=== PATIENT | female | born 1980 | race Caucasian/White ===

== ENCOUNTER 2022-12-16 09:55 | Inpatient (IN) ==
[2022-12-16] MEDS ORDERED: dexAMETHasone**PF** 10 MG/ML VIAL IV ONE (10:10)
[2022-12-16] MEDS ORDERED: ONDANSETRON INJ 2 MG/ML 2 ML VIAL IV STA (10:10)
--- NOTE | 2022-12-16 10:15 | Emergency Department Note ---
Impression & Plan Lumbar disc herniation with radiculopathy ED Provider Note NAME: FELISHA JOLLEY AGE: 42 SEX: F : 1980 ARRIVES VIA: Walk-In INFORMANT: Patient, ED PROVIDER(S): Lalo Vargas DO CHIEF COMPLAINT: Back pain HPI: The patient is a 42-year-old female who presented to the emergency department for an evaluation of back pain. The patient's had progressively worsening back pain over the course of the last 3 months. The patient denies roman ving any specific injury but she was working last evening and thinks she may have aggravated the pain. She has had right hip pain initially. This was felt to be the cause of her pain and initially she did have an injection for bursitis. Since that time the pain started to go down the lateral aspect of her right thigh and into her right lower back. Most recently she was diagnosed with suspected lumbar disc disease. She does have follow-up scheduled with orthopedic spine. She started having severe pain this morning and was unable to stand. She called her orthopedic spinal specialist and was instructed to go to the emergency department for further evaluation. She denies having any nausea or vomiting. She is had no fever or trauma. She does complain of some numbness in the leg but denies having any saddle anesthesia. She has noticed some problems urinating. ROS: See above HPI for pertinent positives & negatives. A total of 10 systems reviewed and were otherwise negative. PAST MEDICAL HISTORY: See Below PAST SURGICAL HISTORY: See Below FAMILY HISTORY: See Below SOCIAL HISTORY: See Below HOME MEDICATIONS: See Below ALLERGIES: See Below VITALS: See Below PHYSICAL EXAMINATION: GENERAL: The patient is awake and alert. She is very anxious appearing and appears to be uncomfortable. EYES: The conjunctivae are clear. The pupils are round and reactive. EARS, NOSE, MOUTH AND THROAT: The nose is without any evidence of any deformity. NECK: The neck is nontender and supple. RESPIRATORY: Normal respiratory effort is noted there is no evidence of wheezing rhonchi or rales CARDIOVASCULAR: Regular rate and rhythm noted there no murmurs rubs or gallops normal S1 normal S2. GASTROINTESTINAL: The abdomen is soft. Abdomen is nontender. BACK: Tenderness to palpation was noted over the low lumbar spine especially the right paravertebral musculature. Range of motion appears intact but painful. MUSCULOSKELETAL/EXTREMITIES: There is no evidence of gross deformity full range of motion is noted in the hips and shoulders. SKIN: There is no obvious evidence of any rash. There are no petechiae, pallor or cyanosis noted. NEUROLOGIC: Patient is awake alert and oriented x3 strength is symmetric patellar reflexes are 2+ bilaterally. Achilles tendon reflexes were 1+ bilaterally. Great toe raise was normal in the left foot but diminished in the right foot. MEDICAL DECISION MAKING: The patient is a 42-year-old female who presented to the emergency department for an evaluation of back pain. The patient's had ongoing symptoms many weeks. Initially this was felt to be a hip issue but recently she started having back pain with radicular symptoms into her right leg. History and physical exam appear to be consistent with radiculopathy and possible disc disease. For this reason MRI was obtained which does appear to show signs of disc herniation. I discussed the patient's condition with Dr. Bautista who is on for orthopedic spine. The patient was treated with IV fluids IV pain medication and IV st eroids. She was reevaluated multiple times. She was feeling somewhat better but at 1 point did try to stand and go to the bathroom again with reaggravation of her symptoms. I do not feel the patient be a good candidate for outpatient management at this time. Triage Nursing notes reviewed. Prior medical records reviewed Vital Signs: reviewed and remarkable for elevated blood pressure. Differential diagnosis: Musculoskeletal, disc herniation, fracture, metastatic disease, cord compression, discitis, sciatica, cauda equina, infection, aortic disease, renal colic, gastrointestinal, as well as other pathologies. ER treatment provided: See below Diagnostics interpreted by me: ECG: none Cardiac Monitoring: An order was placed for continuous cardiac monitoring. The monitor shows a rate of 105 bpm with sinus tachycardia. Laboratory studies: As stated above and show below. Imaging studies: See below. Radiographic imaging was reviewed by myself Consultation(s): I discussed this case with Dr. Bautista. I discussed this case with Dr. Hayes who is on for the [facility] hospitalist group Past Med/Surg History Surgical History H/O dilation and curettage MAB at 8 weeks-04/30/2014 MAB at 16+weeks-05/04/15 History of cholecystectomy [place] teeth extracted Family History Grandmother (Paternal) Breast cancer Denies family history of Ovarian cancer Colorectal cancer Social History Smoking Status: Never smoker Preferred Language: Kyrgyz Feels Safe at Home: Yes Allergies Allergies Allergy/AdvReac Type Severity Reaction Status Date / Time doxycycline Allergy Unknown RASH Verified 01/23/22 13:49 Home Meds Home Medications Medication Instructions Recorded Confirmed metoprolol succinate 25 mg 25 mg PO DAILY 01/23/22 01/23/22 tablet,extended release 24 hr Previous Rx's Medication Instructions Recorded norethindrone acetate 1 mg-ethinyl 1 tab PO DAILY #63 tabs 01/23/22 estradiol 20 mcg tablet (Junel) Results & Data (ED) Vital Signs Vital Signs - 24 hr 12/16/22 09:55 12/16/22 10:10 12/16/22 11:53 Temperature 36.8 C Temperature Source Temporal Artery Scan Pulse Rate 105 H 86 Pulse Rhythm Regular Respiratory Rate 22 Respiratory Effort / Characteristics Non-Labored Respiratory Depth Normal Blood Pressure 165/88 H Blood Pressure Mean 113 Pulse Oximetry 96 94 Oxygen Delivery Method Room Air Room Air Sepsis Recent Fever Within 48 Hours No Sepsis New/Unexplained Change in Mental Status N/A Sepsis Action Taken by Nursing No Action Required Home Medications Current Medication List: was personally reviewed by me Laboratory Data Attestation: I reviewed the patient's lab results. 12/16/22 10:14 12/16/22 10:14 Lab Results 12/16/22 12/16/22 12/16/22 Range/Units 10:14 10:14 10:14 WBC 7.91 (4.8-10.8) K/ul RBC 4.75 (4.20-5.40) M/uL Hgb 14.1 (12.0-16.0) g/dl Hct 41.6 (37.0-47.0) % MCV 87.6 (80.0-100.0) fL MCH 29.7 (25.0-34.0) pg MCHC 33.9 (32.0-36.0) g/dL RDW Std Deviation 40.5 (36.4-46.3) fL RDW Coeff of Leo 12.6 (11.5-14.5) % Plt Count 283 (130-400) K/uL MPV 10.6 (9.4-12.4) fL Immature Gran % (Auto) 0.4 % Neut % (Auto) 71.9 % Lymph % (Auto) 20.4 % [place] % (Auto) 7.2 % Eos % (Auto) 0.0 % Baso % (Auto) 0.1 % Neut # (Auto) 5.69 (1.40-6.50) K/uL Lymph # (Auto) 1.61 (1.2-3.4) K/uL [place] # (Auto) 0.57 (0.11-0.59) K/uL Eos # (Auto) 0.00 (0-0.50) K/uL Baso # (Auto) 0.01 (0-0.2) K/uL Immature Gran # (Auto) 0.03 (0.01-0.20) K/uL Sodium 138 (136-145) mmol/L Potassium 3.8 (3.5-5.1) mmol/L Chloride 106 (98-107) mmol/L Carbon Dioxide 23 (21-32) mmol/L Anion Gap 9 (3-11) BUN 12 (6-23) mg/dl Creatinine 0.87 (0.6-1.2) mg/dl Est Cr Clr Drug Dosing 104.2 ml/min Est GFR ( Amer) 94.6 ml/min Est GFR (Non-Af Amer) 81.6 ml/min BUN/Creatinine Ratio 13.8 (10-20) Glucose 139 H (70-99(Fasting)) mg/dl Calcium 9.7 (8.5-10.1) mg/dl Total Bilirubin 0.5 (0.2-1.0) mg/dl AST 18 (13-39) U/L ALT 19 (7-52) U/L Alkaline Phosphatase 57 (34-104) U/L Total Protein 7.7 (6.0-8.3) gm/dl Albumin 4.3 (3.4-5.0) gm/dl Globulin 3.4 (2.5-4.0) gm/dl Albumin/Globulin Ratio 1.3 (0.9-2) HCG, Qual Negative (Negative) SARS-CoV-2, RNA, NAAT (NEGATIVE) 12/16/22 Range/Units 12:05 WBC (4.8-10.8) K/ul RBC (4.20-5.40) M/uL Hgb (12.0-16.0) g/dl Hct (37.0-47.0) % MCV (80.0-100.0) fL MCH (25.0-34.0) pg MCHC (32.0-36.0) g/dL RDW Std Deviation (36.4-46.3) fL RDW Coeff of Leo (11.5-14.5) % Plt Count (130-400) K/uL MPV (9.4-12.4) fL Immature Gran % (Auto) % Neut % (Auto) % Lymph % (Auto) % [place] % (Auto) % Eos % (Auto) % Baso % (Auto) % Neut # (Auto) (1.40-6.50) K/uL Lymph # (Auto) (1.2-3.4) K/uL [place] # (Auto) (0.11-0.59) K/uL Eos # (Auto) (0-0.50) K/uL Baso # (Auto) (0-0.2) K/uL Immature Gran # (Auto) (0.01-0.20) K/uL Sodium (136-145) mmol/L Potassium (3.5-5.1) mmol/L Chloride (98-107) mmol/L Carbon Dioxide (21-32) mmol/L Anion Gap (3-11) BUN (6-23) mg/dl Creatinine (0.6-1.2) mg/dl Est Cr Clr Drug Dosing ml/min Est GFR ( Amer) ml/min Est GFR (Non-Af Amer) ml/min BUN/Creatinine Ratio (10-20) Glucose (70-99(Fasting)) mg/dl Calcium (8.5-10.1) mg/dl Total Bilirubin (0.2-1.0) mg/dl AST (13-39) U/L ALT (7-52) U/L Alkaline Phosphatase (34-104) U/L Total Protein (6.0-8.3) gm/dl Albumin (3.4-5.0) gm/dl Globulin (2.5-4.0) gm/dl Albumin/Globulin Ratio (0.9-2) HCG, Qual (Negative) SARS-CoV-2, RNA, NAAT NEGATIVE (NEGATIVE) Administered Medications Sodium Chloride (Nss 1000ml) 1,000 mls @ 999 mls/hr IV .Q1H1M ONE Stop: 12/16/22 12:54 Last Admin: 12/16/22 12:00 Dose: 999 mls/hr Documented By: VAMSI Morphine Sulfate (Morphine Sulfate 4 Mg/Ml 1 Ml Carp\Vial) 4 mg IV Q15M PRN PRN Reason: Pain Stop: 12/30/22 10:09 Last Admin: 12/16/22 12:00 Dose: 4 mg Documented By: Admin: 12/16/22 11:40 Dose: 4 mg Documented By: Admin: 12/16/22 10:21 Dose: 4 mg Documented By: VAMSI Discontinued Medications Dexamethasone Sodium Phosphate (DexamethasonePf 10 Mg/Ml Vial) 10 mg IV NOW ONE Stop: 12/16/22 10:11 Last Admin: 12/16/22 10:21 Dose: 10 mg Documented By: VAMSI Ondansetron HCl (Ondansetron Inj 2 Mg/Ml 2 Ml Vial) 4 mg IV NOW STA Stop: 12/16/22 10:11 Last Admin: 12/16/22 10:21 Dose: 4 mg Documented By: VAMSI Imaging Data Attestation: I personally reviewed and interpreted this imaging study as follows: My Impression: MRI was obtained in the emergency department. I did review the images. There does appear to be disc herniation. Radiologist's Impression: Lumbar Spine MRI 12/16/22 10:11 MR lumbar spine wo con CLINICAL HISTORY: right sided symptoms TECHNIQUE: Multiplanar sequences through the lumbar spine were obtained, without intravenous contrast. Comparison: None available at the time of this dictation. FINDINGS: The alignment is anatomical. L1-L2: No significant abnormality. L2-L3: No significant abnormality. L3-L4: No significant abnormality. L4-L5: There is a focal right-sided disc extrusion which impinges upon the exiting L5 nerve roots. Extrusion measures approximately 10 x 5 mm. There is moderate canal stenosis with AP diameter measuring 5 mm. L5-S1: No significant abnormality. The spinal ligaments are intact, without evidence of disruption or abnormal signal intensity. The spinal cord is normal in signal intensity and there is no evidence of cord contusion. There is no evidence of an extradural, intradural, extramedullary or intramedullary lesion. Visualized soft tissues are normal. IMPRESSION: Focal right-sided disc extrusion at L4-L5 impinges upon the exiting L5 nerve roots on the right. ACT 112: Negative or not required by law. Electronically signed by: Spencer Matos M.D. 12/16/2022 11:43 AM Discharge Plan Visit Data Chief Complaint: Back Injury/Pain Stated Complaint: POTENTIAL HERNIATED DISC ED Provider: Lalo Vargas Discharge Problem: Lumbar disc herniation with radiculopathy Patient Disposition: Being Evaluated by Surgeon Forms Stand Alone Forms: My [facility] [place] Prescriptions Prescriptions: No Action metoprolol succinate 25 mg tablet extended release 24 hr 25 mg PO DAILY norethindrone ac-eth estradiol [11/03 (21)] 1-20 mg-mcg tablet 1 tab PO DAILY Qty: 63 4RF Rx Instructions: take one tablet by mouth daily for 21 days, then 7 tablet free days. Repeat. Referrals Referrals: PCP,NO [Primary Care Provider] -
[2022-12-16] MEDS: MoRPHine SULFATE 4 MG/ML 1 ML CARP\\VIAL IV PRN ×4 (10:21→21:33)
[2022-12-16 10:44] LABS: Basophils # (auto) 0.01 K/uL (0-0.2); Basophils % (auto) 0.1 %; Hematocrit (blood only) 41.6 % (37.0-47.0); Hemoglobin 14.1 g/dl (12.0-16.0); Immature Granulocytes # (auto) 0.03 K/uL (0.01-0.20); Immature Granulocytes % (auto) 0.4 %; Lymphocytes # (auto) 1.61 K/uL (1.2-3.4); Lymphocytes % (auto) 20.4 %; Mean Corpuscular Hemoglobin 29.7 pg (25.0-34.0); Mean Corpuscular Hgb Conc 33.9 g/dL (32.0-36.0); Mean Corpuscular Volume 87.6 fL (80.0-100.0); Mean Platelet Volume 10.6 fL (9.4-12.4); Monocytes # (auto) 0.57 K/uL (0.11-0.59); Monocytes % (auto) 7.2 %; Neutrophils # (auto) 5.69 K/uL (1.40-6.50); Neutrophils % (auto) 71.9 %; Platelet Count 283 K/uL (130-400); RDW Coefficient of Variation 12.6 % (11.5-14.5); RDW Standard Deviation 40.5 fL (36.4-46.3); Red Blood Count 4.75 M/uL (4.20-5.40); White Blood Count 7.91 K/ul (4.8-10.8)
[2022-12-16 10:56] LABS: Albumin Globulin Ratio 1.3 (0.9-2); Albumin Level 4.3 gm/dl (3.4-5.0); BUN Creatinine Ratio 13.8 (10-20); Bilirubin,Total 0.5 mg/dl (0.2-1.0); Calcium 9.7 mg/dl (8.5-10.1); Creatinine Clr Calc Pharmacy 104.2 ml/min; Est GFR (African American) 94.6 ml/min; Est GFR (Non-African American) 81.6 ml/min; Globulin 3.4 gm/dl (2.5-4.0); Potassium 3.8 mmol/L (3.5-5.1); Total Protein 7.7 gm/dl (6.0-8.3)
[2022-12-16 11:22] LABS: Pregnancy Test, Serum Negative (Negative)
--- NOTE | 2022-12-16 11:45 | Magnetic Resonance Report ---
MR lumbar spine wo con CLINICAL HISTORY: right sided symptoms TECHNIQUE: Multiplanar sequences through the lumbar spine were obtained, without intravenous contrast . Comparison: None available at the time of this dictation. FINDINGS: The alignment is anatomical. L1-L2: No significant abnormality. L2-L3: No significant abnormality. L3-L4: No significant abnormality. L4-L5: There is a focal right-sided disc extrusion which impinges upon the exiting L5 nerve roots. Ex trusion measures approximately 10 x 5 mm. There is moderate canal stenosis with AP diameter measuring 5 mm. L5-S1: No significant abnormality. The spinal ligaments are intact, without evidence of disruption or abnormal signal intensity. The spi nal cord is normal in signal intensity and there is no evidence of cord contusion. There is no eviden ce of an extradural, intradural, extramedullary or intramedullary lesion. Visualized soft tissues are normal. IMPRESSION: Focal right-sided disc extrusion at L4-L5 impinges upon the exiting L5 nerve roots on the right. ACT 112: Negative or not required by law. Electronically signed by: Spencer Matos M.D. 12/16/2022 11:43 AM
[2022-12-16] MEDS ORDERED: SODIUM CHLORIDE 0.9% 1000ML 1,000 ML IV ONE (11:54)
--- NOTE | 2022-12-16 12:38 | History & Physical Report ---
Date of Service December 16, 2022 Assessment & Plan (1) Lumbar disc herniation with radiculopathy: Plan: Back pain, radiculopathy, right foot drop MRI: Focal right-sided disc extrusion at L4-L5 impinges upon the exiting L5 nerve roots on the right. On exam patient with focal right weakness to dorsiflexion with preserved plantarflexion. Also has peroneal distribution paresthesia. Ortho updated Continue multimodal pain control, Tylenol, lidocaine, morphine breakthrough, steroids Dexamethasone 6 mg daily continue No leukocytosis Hemoglobin is normal Creatinine is with normal baseline, admitting creatinine 0.87 Admitting BSG nonfasting, 139. No history of DM Beta-hCG negative COVID-negative Normal risk surgery. No history of ischemic heart disease. No history of congestive failure. No history of TIA/stroke. No history of DM/insulin treatment. No history of CKD or elevated creatinine. RCRI 0 points, class I risk. 3.9% 30-day risk of mortality. No modifiable risk factors at this time. Rhythm sinus on monitor, preop EKG for baseline pending. R hip pain in September. - 1x injection no benefit - Progressively spread to back May have underlying symptoms of sciatica at baseline, but current symptoms are different and radicular in nature, management as above PVCs Without history of NJ or dysrhythmia Metoprolol continued EKG pending DVT prophylaxis: Lovenox, hold 24 hours prior to anticipated surgery Diet: Regular, n.p.o. midnight of 12/18/2022 Disposition: Medical surgical CODE STATUS: Full code (2) PVC (premature ventricular contraction): History of Present Illness Primary Care Provider: NO PCP Diana is a 42-year-old female with a past medical history of cholecystectomy and migraine who presented to the emergency department with several weeks of ongoing back pain which is recently started spreading down the right leg. MRI shows disc herniation, case was reviewed with orthopedic spine will likely require surgical decompression however this cannot be performed until Sunday. Patient will be admitted on medical management and made n.p.o. Sunday night. Started as hi pain in September which did feel different than current symptoms. Did have some pain which radiated down the R leg with tightness Last few weeks changed in quality and shot down into the lower leg and was associated with low back pain as well Would improve during the day and worsen at night Last week worsened during the day and progressivly increased Today could not stand back up int he bathroom due to pain. Pain this morning was in R low back shooting in to the R foot and toes. Toes, ankle, and mid calf were numb and could not put any weight on the leg while also having a cramping like pain. Since being in the ER feels a little better. Back pain laying down is improved, but shooting pain into the leg is 'still there but tolerable.' 2/10 in intensity now, was ~6-7/10 earlier. As soon as she tried to get out of bed earlier to give a urine sample has 10/10 shooting pain again which has improved with rest. No urinary retention or incontinence. No bowel/bladder incontinence. No saddle anesthesia No fevers, chills, or sweats No chest pain or chest pressure No shortness of breath Takes metoprolol for PVCs, did take this morning. No other heart disease. No history of NJ, no FHx of NJ. NO history of kidney disease No history of lung disease No history of blood clots. No FHx PEs. Norethindrone-ethinyl for period suppression. Still gets periods but volume of blood loss greatly improved. No over the counter medication tx. Medical History: Reviewed Medications: Reviewed Surgical History: Reviewed. Hx of cholecystectomy and 2x D&E for miscarriage, no problems with anesthesia. Allergies: Reviewed. Allergic to doxycycline, had a rash when she was in college and was tx. Social History: No tobacco use, rare social alcohol use. No recreational drug use or medical marijuana use Code Status: Full Allergies Allergy/AdvReac Type Severity Reaction Status Date / Time doxycycline Allergy Unknown RASH Verified 01/23/22 13:49 Home Medications Medication Instructions Recorded Confirmed Type metoprolol succinate 25 mg 25 mg PO DAILY 01/23/22 01/23/22 History tablet,extended release 24 hr norethindrone acetate 1 mg-ethinyl 1 tab PO DAILY #63 tabs 01/23/22 01/23/22 Rx estradiol 20 mcg tablet (June) Past Med/Surg History Medical History (Updated 12/16/22 @ 12:49 by Henok Dumont MD) PVC (premature ventricular contraction) Surgical History H/O dilation and curettage MAB at 8 weeks-04/30/2014 MAB at 16+weeks-05/04/15 History of cholecystectomy [place] teeth extracted Family History Grandmother (Paternal) Breast cancer Denies family history of Ovarian cancer Colorectal cancer Social History Smoking Status: Never smoker Preferred Language: Bengali Feels Safe at Home: Yes Review of Systems Review of Systems: All systems reviewed & are unremarkable except as noted in HPI & below Physical Exam Physical Exam: General: A&Ox3. NAD. Cooperative. HEENT: Atraumatic, normocephalic. Vision/hearing intact Pulm: CTAB A&P. -wheezes, -rales, -rhonchi. Symmetrical chest rise. No increase in work of breathing. No respiratory distress. Cardiac: RRR, -mrg. Radial pulses intact and symmetrical. Abdominal: Nontender, nondistended, soft. BS present. Extremities: Upper extremities: Right and left upper extremities with recycler strength, elbow flexion/extension, shoulder flexion/extension 5/5 bilaterally. Sensation of soft touch intact in hands, forearms bilaterally without asymmetry. Right lower extremity: Sensation to soft touch intact but with numbness/tingling/paresthesia qualitatively most prominent on the dorsal aspect of the foot and lateral lower leg. Plantarflexion 5/5, dorsiflexion 4 -/5 and notably weaker compared to left. Hip flexion unable to be tested due to pain limitation. Left lower extremity: 5/5 hip flexion, ankle dorsiflexion/plantarflexion. Sensation of soft touch intact without paresthesia in the left lower extremity. PT pulse intact bilaterally in the lower extremities. No pitting edema. No calf asymmetry Results & Data Results & Data ([facility]) Vital Signs (Past 12 Hours) Vital Signs Temp Pulse Resp BP Pulse Ox O2 Del Method 12/16/22 11:53 86 12/16/22 10:10 94 Room Air 12/16/22 09:55 36.8 C 105 H 22 165/88 H 96 Room Air PG Care Time/CCT Total # of Minutes Spent Total Time Spent with Patient: Total time spent is greater than 50% in coordination of care (as documented) at patient's floor/unit and/or counseling patient: Coding Level of Care Code 11273 INT INP/OBS CARE MIN Diagnoses Lumbar disc herniation with radiculopathy M51.16 PVC (premature ventricular contraction) I49.3
[2022-12-16] MEDS ORDERED: MoRPHine SULFATE 2 MG/ML CARP IV PRN (14:39)
[2022-12-16] MEDS ORDERED: ACETAMINOPHEN 325 MG TAB PO PRN (14:39)
[2022-12-16 19:59] LABS: Appearance Urine Clear (Clear); Bacteria Urine Automated Negative (Negative); Bilirubin Urine Negative (Negative); Blood Urine Trace (Negative); Cast Urine Automated 0 /lpf (0-5); Color Urine Yellow; Epithelial Cell Urine Auto 20-30 /lpf (0-5); Glucose Urine UA Negative (Negative); Ketones Urine Negative (Negative); Leukocyte Esterase Urine Negative (Negative); Nitrite Urine Negative (Negative); Protein Urine Negative (Negative); RBC Urine Automated 0-4 /hpf (0-4); Specific Gravity Urine 1.012 (1.000-1.030); Urobilinogen Urine Negative (Negative); pH Urine 6.5 (4.5-7.5)
[2022-12-17] MEDS: MoRPHine SULFATE 4 MG/ML 1 ML CARP\\VIAL IV PRN (05:14)
[2022-12-17 06:24] LABS: Basophils # (auto) 0.01 K/uL (0-0.2); Basophils % (auto) 0.1 %; Hematocrit (blood only) 38.4 % (37.0-47.0); Hemoglobin 12.7 g/dl (12.0-16.0); Immature Granulocytes # (auto) 0.05 K/uL (0.01-0.20); Immature Granulocytes % (auto) 0.6 %; Lymphocytes # (auto) 2.15 K/uL (1.2-3.4); Lymphocytes % (auto) 24.3 %; Mean Corpuscular Hemoglobin 29.5 pg (25.0-34.0); Mean Corpuscular Hgb Conc 33.1 g/dL (32.0-36.0); Mean Corpuscular Volume 89.3 fL (80.0-100.0); Mean Platelet Volume 10.9 fL (9.4-12.4); Monocytes # (auto) 0.79 K/uL (0.11-0.59); Monocytes % (auto) 8.9 %; Neutrophils # (auto) 5.84 K/uL (1.40-6.50); Neutrophils % (auto) 66.1 %; Platelet Count 264 K/uL (130-400); RDW Coefficient of Variation 12.9 % (11.5-14.5); RDW Standard Deviation 41.9 fL (36.4-46.3); White Blood Count 8.84 K/ul (4.8-10.8)
[2022-12-17 06:41] LABS: BUN Creatinine Ratio 11.6 (10-20); Calcium 9.3 mg/dl (8.5-10.1); Creatinine Clr Calc Pharmacy 105.4 ml/min; Est GFR (African American) 95.9 ml/min; Est GFR (Non-African American) 82.7 ml/min; Potassium 3.8 mmol/L (3.5-5.1)
[2022-12-17] MEDS: METOPROLOL SUCC 25MG EXT REL TAB PO SCH (08:42)
[2022-12-17] MEDS: LIDOCAINE 5% 1 PATCH TD SCH (08:43)
[2022-12-17] MEDS ORDERED: ENOXAPARIN INJ 40 MG/0.4 ML SYR SQ SCH (09:00)
--- NOTE | 2022-12-17 10:13 | Orthopedic Consultation ---
Date of Consultation December 17, 2022 Assessment & Plan (1) Lumbar disc herniation with radiculopathy: MRI lumbar spine demonstrates evidence of disc herniation at L4-L5 on the right with a fragment migrating caudally and significant encroachment traversing nerve roots. There is evidence of significant Modic changes at L4-5. All other levels appear very well aligned and healthy. Plan at this time discussed this patient possible treatment option including surgery. In light of her progressive neuro deficit severe discomfort and requirement for pain medication we could consider a lumbar laminectomy with possible fusion L4-L5. Risk benefits pros cons and alternatives were in detail with risk include but not limited to anesthesia blindness stroke paralysis nerve damage blood loss requiring transfusion infection requiring reoperation benefits hopefully marked improvement of radiculopathy. My concern is she may require an aggressive decompression to safely adequately remove the disc herniation creating iatrogenic instability requiring fusion. I will have physical therapy work with her today. Make her n.p.o. after midnight. History of Present Illness Reason for Consultation: Right leg pain with weakness Attending Physician: Betty Meadows MD History of Present Illness This a very pleasant 39-year-old female who presents yesterday with marked decline in status. She was unable to ambulate secondary to severe right leg pain. She has a history of several months of axial pain rating to the right buttock. She is undergone injections for the symptoms but unfortunate the past day she had marked decline in status with pain rating the right buttock posterior lateral thigh into the foot with numbness in her foot. She has no left leg pain. She denies any loss of bowel or bladder function. She is obtaining some relief from the pain medications. She is able to get to the bathroom with assistance. Allergies Allergy/AdvReac Type Severity Reaction Status Date / Time doxycycline Allergy Unknown RASH Verified 01/23/22 13:49 Home Medications Medication Instructions Recorded Confirmed Type metoprolol succinate 25 mg 25 mg PO DAILY 01/23/22 12/16/22 History tablet,extended release 24 hr norethindrone acetate 1 mg-ethinyl 1 tab PO DAILY #63 tabs 01/23/22 12/16/22 Rx estradiol 20 mcg tablet (Junel) Patient History Medical History (Updated 12/16/22 @ 12:49 by Henok Dumont MD) PVC (premature ventricular contraction) Surgical History H/O dilation and curettage MAB at 8 weeks-04/30/2014 MAB at 16+weeks-05/04/15 History of cholecystectomy [place] teeth extracted Family History Grandmother (Paternal) Breast cancer Denies family history of Ovarian cancer Colorectal cancer Social History Smoking Status: Never smoker Second Hand Exposure: No; Do You Dip or Chew Tobacco: No; Tobacco Cessation Education Requested by Patient: No Hx Alcohol Use: Yes Alcohol type: hard liquor Hx Substance Use: No Preferred Language: Lithuanian Communication Ability: Effective Cooling Pan Tender Required: No Beliefs That Will Affect Care: None Current Living Situation: Spouse Other Information That Helps Us Care for You: No Feels Safe at Home: Yes Safety Concerns: Feels Safe At This Time Assistive Devices: None Physical Exam Physical Exam: On exam she has 4/5 right dorsiflexion extensor houses longus compared to 5 on the left. Plantarflexion to 5 or 5. She has markedly positive straight leg raise sign on the right with contralateral side on the left. Sensory. And symmetric and intact. Pain reflexes diminished. Results & Data ([facility]) Vital Signs (Past 12 Hours) Vital Signs Temp Pulse Resp BP Pulse Ox O2 Del Method 12/17/22 08:41 70 122/76 12/17/22 07:19 36.9 C 79 16 122/75 95 Room Air
[2022-12-17] MEDS: dexAMETHasone 6 MG in SYRINGE 0 ML IV SCH (13:12)
[2022-12-17] MEDS: NORETHINDRONE ACETATE PO SCH (13:18)
[2022-12-17] MEDS: ETHINYL ESTRADIOL PO SCH (13:18)
--- NOTE | 2022-12-17 14:30 | Electrocardiogram Report ---
Test Reason : Blood Pressure : / mmHG Vent. Rate : 078 BPM Atrial Rate : 078 BPM P-R Int : 126 ms QRS Dur : 078 ms QT Int : 352 ms P-R-T Axes : 020 018 005 degrees QTc Int : 401 ms Poor data quality, interpretation may be adversely affected Normal sinus rhythm Normal ECG When compared with ECG of 17-FEB-2016 23:24, No significant change was found Confirmed by Curtis Abad ([id number]) on 12/17/2022 2:30:09 PM Referred By: REFERRED SELF Confirmed By:Curtis Abad
--- NOTE | 2022-12-17 14:44 | Hospitalist Progress Note ---
Date of Service December 17, 2022 Assessment & Plan (1) Lumbar disc herniation with radiculopathy: Plan: Back pain, L4-5 radiculopathy,with right foot drop-acute on chronic, with progressively worsening focal neuro deficits and pain MRI: Focal right-sided disc extrusion at L4-L5 impinges upon the exiting L5 nerve roots on the right. No evidence of infection Appreciate Ortho Spine consult- plan for L4-5 discectomy and possible fusion tomorrow -NPO after midnight, start LR at midnight Continue pain control w/ Tylenol, lidocaine, morphine, steroids Normal risk surgery. No history of ischemic heart disease. No history of congestive failure. No history of TIA/stroke. No history of DM/insulin treatment. No history of CKD or elevated creatinine. RCRI 0 points, class I risk. 3.9% 30-day risk of mortality. No modifiable risk factors at this time. Preop EKG for baseline is normal. 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 I have concerns about VTE prevention post-op. She is a Caprini moderate risk for VTE given BMI>25, age, and on oral estrogen-containing contraceptives. 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 Dr. Bautista recommends Aspirin 325mg po daily which can be started on POD#1, but then I recommend Lovenox 40mg SQ daily when ok with Ortho Spine surgery--> he prefers waiting at least 48-72 hours post-op. Recommend Lovenox 40mg SQ once daily through POD#10 to begin on POD#2-3. is comfortable with administering injections at home. (2) PVC (premature ventricular contraction): Plan: PVCs Without history of MA Metoprolol continued EKG here NSR (3) Obesity (BMI 30-39.9): Plan: BMI 38.8 see above with increased VTE risk given OCPs, age, increased BMI, h/o miscarriages (4) Menorrhagia: Plan: continue OCPs as per patient preference -VTE prophylaxis as discussed Plan Dispo-continued stay, for Spine surgery tomorrow, then recovery for likely 2-3 days Admission and Anticipated Discharge Date Admission Date: December 16, 2022 Subjective Pt currently has no back or radicular pain if lies still in bed. Pain worse with any movement. Has weakness in right foot and numbness in right foot. Denies lightheadedness, nausea, CP, SOB, diarrhea, constipation, bowel or bladder incontinence. Had a mild GROVER this AM which has improved. Has never had any issues with anesthesia in the past. Typically active and no h/o cardiac issues other than PVCs Review of Systems Review of Systems: All systems reviewed & are unremarkable except as noted in HPI & below Physical Exam Constitutional: WD/WN, vitals as above Eyes: + anicteric sclerae Respiratory: normal respiratory effort, lungs clear to auscultation Cardiovascular: RRR, no murmur, no edema Gastrointestinal (Abdomen): normal bowel sounds, soft, nontender, no hepatosplenomegaly Musculoskeletal: Extremities: extremities normal to inspection Skin: no rashes, warm and dry Neurologic: + focal motor deficit (4/5 right foot and great toe plantarflexion,otherwise 5/5) +SLR on right Psychiatric: A+Ox3, euthymic affect Results & Data Results & Data ([facility]) Vital Signs (Past 12 Hours) Vital Signs Temp Pulse Resp BP Pulse Ox O2 Del Method 12/17/22 08:41 70 122/76 12/17/22 07:19 36.9 C 79 16 122/75 95 Room Air Laboratory Results CBC, BMP, HCG reviewed PG Care Time/CCT Total # of Minutes Spent Total Time Spent with Patient: Total time spent is greater than 50% in coordination of care (as documented) at patient's floor/unit and/or counseling patient: Coding Level of Care Code 95373 SUB INP/OBS CARE 2/35MIN Diagnoses Lumbar disc herniation with radiculopathy M51.16 PVC (premature ventricular contraction) I49.3 Obesity (BMI 30-39.9) E66.9 Menorrhagia N92.0
[2022-12-18] MEDS ORDERED: ceFAZolin 2000MG 2,000 MG/15 ML SYR IV SCH ×2 (06:00)
--- NOTE | 2022-12-18 07:50 | Hospitalist Progress Note ---
Date of Service December 18, 2022 Assessment & Plan (1) Lumbar disc herniation with radiculopathy: Plan: - Back pain, L4-5 radiculopathy, with right foot drop-acute on chronic, with progressively worsening focal neuro deficits and pain. - MRI: Focal right-sided disc extrusion at L4-L5 impinges upon the exiting L5 nerve roots on the right. - Appreciate Ortho Spine consult - underwent lumbar decompression and L4-5 fusion on 12/18/[address] Bautista, with improvement in pain and numbness. - Continue pain control and IV fluids as ordered by surgical service (however tolerating diet well so will d/c fluids tomorrow AM). - Has a history of miscarriages (potentially indicates hypercoagulability), OCP use, therefore at increased DVT risk. Will be on DVT ppx post-op x10 days (starting tomorrow), starting Lovenox 40mg SQ daily before discharge. (2) PVC (premature ventricular contraction): Plan: - PVCs. Without history of WI. Metoprolol continued. EKG here NSR. (3) Obesity (BMI 30-39.9): Plan: - BMI 38.8 - See above with increased VTE risk given OCPs, age, increased BMI, h/o miscarriages. (4) Menorrhagia: Plan: - Continue OCPs as per patient preference. - VTE prophylaxis as described above. Plan Dispo - continued stay, for Spine surgery today, then recovery with dispo plan in conjunction with Ortho Spine Admission and Anticipated Discharge Date Admission Date: December 16, 2022 Subjective Patient is doing well this afternoon after surgery, reports improvement in numbness and tingling symptoms, as well as pain post-surgery. Review of Systems Review of Systems: All systems reviewed & are unremarkable except as noted in Subjective Physical Exam Constitutional: WD/WN, vitals as above Respiratory: normal respiratory effort, lungs clear to auscultation Cardiovascular: RRR, no murmur, no edema Gastrointestinal (Abdomen): normal bowel sounds, soft, nontender, no hepatosplenomegaly Skin: no rashes, warm and dry Psychiatric: A+Ox3, euthymic affect Results & Data Results & Data ([facility]) Vital Signs (Past 12 Hours) Vital Signs Temp Pulse Resp BP Pulse Ox O2 Del Method 12/17/22 20:52 36.9 C 87 18 119/76 95 Room Air PG Care Time/CCT Total # of Minutes Spent Total Time Spent with Patient: Total time spent is greater than 50% in coordination of care (as documented) at patient's floor/unit and/or counseling patient: Coding Level of Care Code 22316 SUB INP/OBS CARE 2/35MIN Diagnoses Lumbar disc herniation with radiculopathy M51.16 PVC (premature ventricular contraction) I49.3 Obesity (BMI 30-39.9) E66.9 Menorrhagia N92.0
[2022-12-18] MEDS: NORETHINDRONE ACETATE PO SCH (09:01)
[2022-12-18] MEDS: ETHINYL ESTRADIOL PO SCH (09:01)
[2022-12-18] MEDS: METOPROLOL SUCC 25MG EXT REL TAB PO SCH (09:01)
[2022-12-18] MEDS: LIDOCAINE 5% 1 PATCH TD SCH (09:01)
--- NOTE | 2022-12-18 09:42 | History & Physical Bridge Note ---
Date of Service December 18, 2022 History & Physical Bridge Note I have examined the patient, reviewed the History & Physical and in the interval since the performance of the History & Physical I have noted the following changes of clinical significance: Patient continues to have significant progressive motor and sensory deficits to the right lower extremity. Subsequently recommending emergent decompression possible fusion L4-L5
--- NOTE | 2022-12-18 11:11 | Anesthesiology Consultation ---
Date of Service December 18, 2022 Assessment & Plan (1) Encounter for pre-operative examination: Chart Review Chart Review: Acceptable Risk for Surgery and Patient NOT seen in Pre Admission Testing Consults Requested none History Surgery Operation Date: 12/18/22 08:20 Proposed Procedures p L4-L5 Decompression Possible Fusion - Ayad Bautista DO Height/Weight Height: 5 ft 6 in Weight: 109 kg Allergies Allergy/AdvReac Type Severity Reaction Status Date / Time doxycycline Allergy Unknown RASH Verified 01/23/22 13:49 Medications Home Medications Medication Instructions Recorded Confirmed Last Taken metoprolol succinate 25 mg 25 mg PO DAILY 01/23/22 12/16/22 12/16/22 08:00 tablet,extended release 24 hr norethindrone acetate 1 mg-ethinyl 1 tab PO DAILY #63 tabs 01/23/22 12/16/22 12/16/22 08:00 estradiol 20 mcg tablet () Active Medications Generic Name Dose Route Start Last Admin Trade Name Freq PRN Reason Stop Dose Admin Acetaminophen 650 mg 12/16/22 14:39 12/16/22 20:09 Acetaminophen 325 Mg Tab PO 01/15/23 14:38 650 mg Q4H PRN Administration pain/fever Dexamethasone 6 mg/ Syringe 1.5 mls @ 1 mls/min 12/17/22 13:15 12/17/22 13:12 IV 01/16/23 13:14 1 mls/min Q24H CADEN Administration Lidocaine 1 patch 12/17/22 09:00 12/18/22 09:01 Lidocaine 5% 1 Patch TD 01/16/23 08:59 1 patch QAM CADEN Administration Metoprolol Succinate 25 mg 12/17/22 09:00 12/18/22 09:01 Metoprolol Succ 25mg Ext Rel Tab PO 01/16/23 08:59 25 mg DAILY CADEN Administration Miscellaneous 1 each 12/16/22 21:00 12/17/22 21:00 Remove Lidoderm Patch N/A 01/15/23 20:59 1 each DAILY@2100 CADEN Administration Miscellaneous 1 each 12/17/22 14:00 12/18/22 09:01 Junel 11/03 - Patient's Own Oral Contraceptive PO 01/16/23 13:59 1 each DAILY CADEN Administration Morphine Sulfate 4 mg 12/16/22 14:39 12/17/22 05:14 Morphine Sulfate 4 Mg/Ml 1 Ml Carp\Vial IV 12/30/22 14:38 4 mg Q4H PRN Administration Severe Pain (7,8,9,10) on NRS Morphine Sulfate 2 mg 12/16/22 14:39 12/16/22 17:48 Morphine Sulfate 2 Mg/Ml Carp IV 12/30/22 14:38 2 mg Q4H PRN Administration Moderate Pain (4,5,6) on NRS Past Medical History Medical History Menorrhagia Migraine headache Obesity (BMI 30-39.9) PVC (premature ventricular contraction) Past Family History Family History Grandmother (Paternal) Breast cancer Denies family history of Ovarian cancer Colorectal cancer Past Surgical History Surgical History H/O dilation and curettage MAB at 8 weeks-04/30/2014 MAB at 16+weeks-05/04/15 History of cholecystectomy [place] teeth extracted Social History Smoking Status: Never smoker Do You Dip or Chew Tobacco: No Hx Alcohol Use: Yes Alcohol type: hard liquor alcohol intake frequency: holidays/special occasions only Hx Substance Use: No Physical Exam Vital Signs Last Vital Signs Temp 98.2 F 12/18/22 07:53 Pulse 66 12/18/22 09:00 Resp 18 12/18/22 07:53 BP 138/83 12/18/22 09:00 Pulse Ox 96 12/18/22 07:53 O2 Del Method Room Air 12/18/22 07:53 Testing Laboratory Results 12/17/22 05:24 12/17/22 05:24 Urine Color Yellow 12/16/22 19:25 Urine Appearance Clear (Clear) 12/16/22 19:25 Urine pH 6.5 (4.5-7.5) 12/16/22 19:25 Ur Specific [place] 1.012 (1.000-1.030) 12/16/22 19:25 Urine Protein Negative (Negative) 12/16/22 19:25 Urine Glucose (UA) Negative (Negative) 12/16/22 19:25 Urine Ketones Negative (Negative) 12/16/22 19:25 Urine Nitrite Negative (Negative) 12/16/22 19:25 Ur Leukocyte Esterase Negative (Negative) 12/16/22 19:25 Urine WBC (Auto) 1-5 /hpf (0-5) 12/16/22 19:25 Urine RBC (Auto) 0-4 /hpf (0-4) 12/16/22 19:25 U Hyaline Cast (Auto) 0 /lpf (0-5) 12/16/22 19:25 U Epithel Cells (Auto) 20-30 /lpf (0-5) H 12/16/22 19:25 Urine Bacteria (Auto) Negative (Negative) 12/16/22 19:25 Electrocardiogram Date: 12/16/22 Findings: + NSR @
[2022-12-18] MEDS ORDERED: fentaNYL citrate 100 MCG/2 ML VIAL ONE ×2 (12:32→15:08)
[2022-12-18] MEDS ORDERED: MIDAZOLAM HCL 1 MG/ML 2ML VIAL ONE (12:32)
[2022-12-18] MEDS ORDERED: ePHEDrine sulfate 50 MG/ML AMP IV PRN (12:45)
[2022-12-18] MEDS ORDERED: SCOPOLAMINE 1 MG TDSY TD ONE ×2 (12:45)
[2022-12-18] MEDS ORDERED: HYDROmorphone INJ 2 MG/ML SYR/VIAL IV PRN (12:45)
[2022-12-18] MEDS ORDERED: ATROPINE SULFATE 0.1 MG/ML 10ML SYR IV PRN (12:45)
[2022-12-18] MEDS ORDERED: ONDANSETRON INJ 2 MG/ML 2 ML VIAL IV PRN ×2 (12:45→17:12)
[2022-12-18] MEDS ORDERED: ceFAZolin 2,000 MG/15 ML IV PUSH IV ONE (13:09)
[2022-12-18] MEDS ORDERED: Nursing to Pharmacy Communication SCH (13:15)
[2022-12-18] MEDS ORDERED: BUPIVACAINE/EPINEPHRINE 0.25% 1:200,000 30 ML VIAL ONE (13:43)
[2022-12-18] MEDS ORDERED: ceFAZolin 330 MG/ML 1 GM VIAL ONE (13:43)
[2022-12-18] MEDS ORDERED: HYDROmorphone INJ 2 MG/ML SYR/VIAL ONE (14:15)
[2022-12-18] MEDS ORDERED: ONDANSETRON INJ 2 MG/ML 2 ML VIAL ONE ×2 (14:28→15:23)
[2022-12-18] MEDS ORDERED: ROCURONIUM BROMIDE 10 MG/ML 5 ML VIAL IV ONE (14:28)
[2022-12-18] MEDS ORDERED: DEXAMETHASONE SOD INJ 4 MG/ML VIAL ONE (14:28)
[2022-12-18] MEDS ORDERED: PROPOFOL IV EMULSION 10 MG/ML 20 ML VIAL IV ONE (14:28)
[2022-12-18] MEDS ORDERED: LIDOCAINE 2% MPF LOCAL 5 ML VIAL INFIL ONE (14:28)
[2022-12-18] MEDS ORDERED: FLOSEAL HEMOSTATIC MATRIX 10ML TOP ONE (14:35)
[2022-12-18] MEDS ORDERED: NEOSTIGMINE METHYLSULFATE 1 MG/ML 10ML VIAL ONE (15:22)
[2022-12-18] MEDS ORDERED: GLYCOPYRROLATE 0.2 MG/ML VIAL ONE (15:22)
--- NOTE | 2022-12-18 15:38 | Operative Report ---
Post Operative Report Pre & Post Diagnosis Operation Date: 12/18/22 08:20 Pre-Op Diagnosis: Lumbar disc condition with neurologic compromise Post-Op Diagnosis: Same I identified the patient and participated in the time-out.: Yes Procedure Operation Date: 12/18/22 08:20 Actual Procedures #1 lumbar decompression bilateral medial facetectomies and foraminotomies L4-L5. #2 posterior spinal fusion L4-L5 #3 posterior instrumentation L4-L5. #4 interbody fusion L4-L5 #5 placement of Spira 14 x 26 mm cage at L4-5 #6 placement locally harvested morselized autograft in the posterior gutters. #7 placement of I factor combined with V toss in the interbody space and posterior lateral gutters. Surgeon Ayad Bautista, Asset Administrator Cori Levy Estimated Blood Loss 50 Findings See Below Patient is 5 foot 6 weighing over 109 kg with a BMI in excess of 38. Patient's body habitus did contribute to significant technical difficulty required deepest retractors longer instruments in order to perform her procedure. This at least 50% increased operative time. Specimens None Indications This is a 42-year-old female who presents with severe right-sided radiculopathy and evidence of a herniated fragment at L4-5 on the right with caudal migration and significant neural compression. She is here for urgent surgery in light of her neurologic deficit. Description of Procedure Patient was met with identified informed consent obtained. Patient was then taken to the operative suite underwent patient placed in a prone position on the [place] table top Jelani frame. All bony promises well-padded eyes inspected to ensure no external pressure placed upon the. With this time with the assistance of fluoroscopy identified the L4-L5 level and sharp dissection with assistance of Bovie cautery from down to and exposing the interlaminar space. A self-retaining retractors placed. Informed laminectomy on the right to identify a markedly compressed exiting and traversing nerve root. I had a compromise significant portion of the facet to adequately decompress the exiting root and safely mobilize the traversing root to remove the free fragments of disc material with this. This did create iatrogenic instability and I transition to a fusion approach. I extended the dissection out of the transverse processes of L4-5 bilaterally. I completed the full laminectomy facetectomy for adequate decompression on the right. Pedicle screws then placed in L4 and L5 bilaterally with assistance of fluoroscopy and appropriately sized ayaan placed. Bilateral transforaminal approach and right complete discectomy of L4-L5 was performed endplates curetted to subcortical bleeding bone and a 14 x 26 mm Spira cage with I factor tapped in position. The rods then locked into final position bilaterally. The transverse processes of L4 and L5 burred to subcortically and bone. I factor combined with V toss and locally harvested morselized autograft was placed in the posterior gutters. 15 round JENNY drain inserted. The incision was then closed with 1 Vicryl to fascia 2-0 Vicryl subcutaneously and 4 Monocryl for final skin closure. Steri-Strips and sterile dressing placed. Patient awakened taken to PACU stable condition. Please note spinal cord monitoring was utilized at the procedure and no changes noted. Lastly Trina Gonzales was present at the entire procedure and while the patient positioning complex portions of the surgery and final skin closure. I attest to the content of the Intraoperative Record and any orders documented therein. Any exceptions are noted below.
--- NOTE | 2022-12-18 15:39 | Fluoroscopy Report ---
FL lumbar spine 2-3V CLINICAL HISTORY: L4-5 DF TECHNIQUE: 2 views were obtained with the C-arm in the OR with the above procedure. Total fluoroscopy time was 18.7 seconds. Radiation dose was 18.45 mGy. Comparison: Comparison is made to MRI lumbar spine 12/16/2022 FINDINGS/IMPRESSION: Intraoperative images were obtained of L4-L5 discectomy and fusion. Please correlate with intraoperative fluoroscopy and operative report. ACT 112: Negative or not required by law. Electronically signed by: Spencer Matos M.D. 12/18/2022 3:38 PM
[2022-12-18] MEDS: fentaNYL citrate 100 MCG/2 ML VIAL IV PRN ×2 (16:18→16:23)
[2022-12-18] MEDS ORDERED: LORazepam 0.5 MG TAB PO PRN (17:12)
[2022-12-18] MEDS ORDERED: ALUMINUM/MAGNESIUM SUSP 30 ML UDC PO PRN (17:12)
[2022-12-18] MEDS ORDERED: ONDANSETRON 4 MG OD TAB PO PRN (17:12)
[2022-12-18] MEDS ORDERED: FAMOTIDINE 20 MG TAB PO PRN (17:12)
[2022-12-18] MEDS ORDERED: NALOXONE HCL 0.4 MG/1 ML VIAL/CARP IV PRN (17:12)
[2022-12-18] MEDS ORDERED: hydrOXYzine HCl 25 MG TAB PO PRN (17:12)
[2022-12-18] MEDS ORDERED: bisacodyL 10 MG SUPP PR PRN (17:12)
[2022-12-18] MEDS ORDERED: LORazepam 2 MG/1 ML VIAL IV PRN (17:12)
[2022-12-18] MEDS ORDERED: HYDROmorphone INJ 0.5 MG/0.5 ML SYR IV PRN (17:12)
[2022-12-18] MEDS ORDERED: MAGNESIUM HYDROXIDE SUSP 30 ML UDC PO PRN (17:12)
[2022-12-18] MEDS ORDERED: DO NOT ADMINISTER FLU VACCINE PRN (17:12)
[2022-12-18] MEDS ORDERED: METOCLOPRAMIDE HCL INJ 5 MG/ML 2 ML VIAL IV PRN (17:12)
[2022-12-18] MEDS ORDERED: LACTATED RINGER'S 1,000 ML IV SCH (17:12)
[2022-12-18] MEDS ORDERED: SOD PHOSPHATE/SOD BIPHOSPHATE ENEMA 132 ML BTL PR PRN (17:12)
[2022-12-18] MEDS ORDERED: PROMETHAZINE HCL 12.5 MG in SODIUM CHLORIDE 0.9% 50 ML IV PRN (17:12)
[2022-12-18] MEDS ORDERED: diphenhydrAMINE Capsule 25 MG CAP PO PRN (17:12)
[2022-12-18] MEDS ORDERED: traMADol HCL 50 MG TABLET PO PRN (17:12)
[2022-12-18] MEDS ORDERED: ACETAMINOPHEN 1,000 MG/100 ML VIAL IV PRN (17:12)
[2022-12-18] MEDS ORDERED: DO NOT ADMINISTER PNEUMOCOCCAL VACCINE PRN (17:12)
[2022-12-18] MEDS: dexAMETHasone 6 MG in SYRINGE 0 ML IV SCH (17:23)
[2022-12-18] MEDS: CHECK SCOPOLAMINE PATCH PLACEMENT SCH ×2 (17:52→23:31)
[2022-12-18] MEDS: oxyCODONE HCL IR 5 MG TAB (IMMEDIATE RELEASE) PO PRN (19:24)
--- NOTE | 2022-12-18 20:04 | Anesthesiology Progress Note ---
Date of Service December 18, 2022 Anesthesia Post Procedure Vital Signs Vital Signs: Temp Pulse Pulse Resp BP BP Pulse Ox 12/18/22 19:10 36.9 C 74 18 135/86 96 12/18/22 18:10 36.7 C 66 18 145/92 H 93 12/18/22 17:42 37 C 64 18 137/70 95 12/18/22 17:10 36.5 C 63 20 136/84 94 12/18/22 16:55 59 L 20 137/85 95 12/18/22 16:45 65 23 138/83 91 12/18/22 16:35 37.1 C 68 15 151/73 H 93 12/18/22 16:25 53 L 14 131/79 93 12/18/22 16:15 62 14 137/80 96 12/18/22 16:05 36.8 C 66 15 136/83 95 12/18/22 12:04 37 C 76 16 97 12/18/22 09:00 66 138/83 12/18/22 07:53 36.8 C 64 18 144/83 H 96 12/17/22 20:52 36.9 C 87 18 119/76 95 O2 Del Method O2 Flow Rate 12/18/22 19:10 Room Air 12/18/22 18:10 Room Air 12/18/22 17:42 Room Air 12/18/22 17:10 Room Air 12/18/22 16:55 Room Air 12/18/22 16:45 Room Air 12/18/22 16:35 Oxymask 2 12/18/22 16:25 Oxymask 2 12/18/22 16:15 Oxymask 2 12/18/22 16:05 Oxymask 5 12/18/22 12:04 Room Air 12/18/22 09:00 12/18/22 07:53 Room Air 12/17/22 20:52 Room Air Pain Intensity Right Leg: Pain Intensity: 4 Transfer of Care Handoff Completed per policy Notes Mental Status: alert / awake / arousable and participated in evaluation Patient Amnestic to Procedure: Yes Nausea / Vomiting: adequately controlled Pain: adequately controlled Airway Patency, RR, SpO2: stable & adequate BP & HR: stable & adequate Hydration State: stable & adequate Anesthetic Complications: no major complications apparent and Pt Satisfied with anesthetic care
[2022-12-18] MEDS: DOCUSATE SODIUM/SENNA 50/8.6MG TAB PO SCH (21:26)
[2022-12-18] MEDS: ceFAZolin 2000MG 2,000 MG/15 ML SYR IV SCH (21:27)
[2022-12-19] MEDS: oxyCODONE HCL IR 5 MG TAB (IMMEDIATE RELEASE) PO PRN ×2 (00:16→08:03)
[2022-12-19] MEDS: ceFAZolin 2000MG 2,000 MG/15 ML SYR IV SCH (05:11)
[2022-12-19] MEDS: POLYETHYLENE (MIRALAX) 17 GM PACK PO SCH ×4 (05:11→23:08)
[2022-12-19 06:18] LABS: Basophils # (auto) 0.01 K/uL (0-0.2); Basophils % (auto) 0.1 %; Hematocrit (blood only) 37.4 % (37.0-47.0); Hemoglobin 12.6 g/dl (12.0-16.0); Immature Granulocytes # (auto) 0.05 K/uL (0.01-0.20); Immature Granulocytes % (auto) 0.4 %; Lymphocytes # (auto) 2.39 K/uL (1.2-3.4); Lymphocytes % (auto) 20.4 %; Mean Corpuscular Hemoglobin 30.1 pg (25.0-34.0); Mean Corpuscular Hgb Conc 33.7 g/dL (32.0-36.0); Mean Corpuscular Volume 89.3 fL (80.0-100.0); Mean Platelet Volume 10.6 fL (9.4-12.4); Monocytes # (auto) 1.09 K/uL (0.11-0.59); Monocytes % (auto) 9.3 %; Neutrophils # (auto) 8.15 K/uL (1.40-6.50); Neutrophils % (auto) 69.8 %; Platelet Count 252 K/uL (130-400); RDW Coefficient of Variation 12.8 % (11.5-14.5); RDW Standard Deviation 41.3 fL (36.4-46.3); Red Blood Count 4.19 M/uL (4.20-5.40); White Blood Count 11.69 K/ul (4.8-10.8)
[2022-12-19 06:37] LABS: BUN Creatinine Ratio 10.6 (10-20); Calcium 8.9 mg/dl (8.5-10.1); Creatinine Clr Calc Pharmacy 87.2 ml/min; Est GFR (African American) 76.2 ml/min; Est GFR (Non-African American) 65.8 ml/min; Potassium 4.1 mmol/L (3.5-5.1)
[2022-12-19] MEDS: CHECK SCOPOLAMINE PATCH PLACEMENT SCH ×3 (08:05→23:09)
[2022-12-19] MEDS: NORETHINDRONE ACETATE PO SCH (08:07)
[2022-12-19] MEDS: dexAMETHasone 6 MG in SYRINGE 0 ML IV SCH (08:07)
[2022-12-19] MEDS: ETHINYL ESTRADIOL PO SCH (08:07)
[2022-12-19] MEDS: METOPROLOL SUCC 25MG EXT REL TAB PO SCH (08:08)
--- NOTE | 2022-12-19 09:17 | Hospitalist Progress Note ---
Date of Service December 19, 2022 Assessment & Plan (1) Lumbar disc herniation with radiculopathy: Plan: - Back pain, L4-5 radiculopathy, with right foot drop-acute on chronic, with progressively worsening focal neuro deficits and pain. - MRI: Focal right-sided disc extrusion at L4-L5 impinges upon the exiting L5 nerve roots on the right. - Appreciate Ortho Spine consult - underwent lumbar decompression and L4-5 fusion on 12/18/[address] Bautista, with improvement in pain and deficits. - Continue pain control per ortho spine, have DC'd fluids as patient is tolerating oral intake well. - Has a history of miscarriages (potentially indicates hypercoagulability), OCP use, therefore at increased DVT risk. Will be on DVT ppx post-op x10 days (starting tomorrow), starting Lovenox 40mg SQ daily before discharge. (2) PVC (premature ventricular contraction): Plan: - PVCs. Without history of NM. Metoprolol succinate 25 mg daily continued. EKG here NSR. (3) Obesity (BMI 30-39.9): Plan: - BMI 38.8. - See above with increased VTE risk given OCPs, age, increased BMI, h/o miscarriages. (4) Menorrhagia: Plan: - Continue OCPs as per patient preference. - VTE prophylaxis as described above. (5) Constipation: Plan: In the setting of receiving opiate pain medications and steroids for acute pain, see #1 above. MiraLAX scheduled every 6 hours with Dulcolax/Fleet enema as needed for continue d constipation. Plan Dispo - continued stay, doing well postop, dispo plan in conjunction with Ortho Spine, anticipate discharge tomorrow or the next day as her JENNY drainage continues to improve per orthospine Admission and Anticipated Discharge Date Admission Date: December 16, 2022 Subjective Patient without any acute events overnight. Some neck pain and stiffness, but has been able to ambulate without issues. Reports no BM since Sunday. Review of Systems Review of Systems: All systems reviewed & are unremarkable except as noted in Subjective Physical Exam Constitutional: WD/WN, vitals as above Respiratory: normal respiratory effort, lungs clear to auscultation Cardiovascular: RRR, no murmur, no edema Gastrointestinal (Abdomen): normal bowel sounds, soft, nontender, no hepa tosplenomegaly Skin: no rashes, warm and dry Psychiatric: A+Ox3, euthymic affect Results & Data Results & Data ([facility] [place]) Vital Signs (Past 12 Hours) Vital Signs Temp Pulse Pulse Resp BP Pulse Ox O2 Del Method 12/19/22 07:32 37.1 C 78 16 145/85 H 95 Room Air 12/19/22 04:03 37.1 C 63 18 115/73 93 Room Air 12/19/22 00:21 37 C 66 18 134/81 95 Room Air PG Care Time/CCT Total # of Minutes Spent Total Time Spent with Patient: Total time spent is greater than 50% in coordination of care (as documented) at patient's floor/unit and/or counseling patient: Coding Level of Care Code 85628 SUB INP/OBS CARE 2/35MIN Diagnoses Lumbar disc herniation with radiculopathy M51.16 PVC (premature ventricular contraction) I49.3 Obesity (BMI 30-39.9) E66.9 Menorrhagia N92.0 Constipation K59.00
--- NOTE | 2022-12-19 10:59 | Orthopedic Progress Note ---
Date of Service December 19, 2022 Assessment & Plan (1) Lumbar disc herniation with radiculopathy: Plan: At this time we will continue physical therapy monitor JENNY operatively discharge home in next few days. Admission and Anticipated Discharge Date Admission Date: December 16, 2022 Subjective Back pain controlled leg pain improved still some residual numbness and weakness. Physical Exam Physical Exam: Patient is in the chair at the bedside. Peers comfortable. Has good strength to testing the left lower extremity but still EHL deficits and dorsiflexion deficits to the right. Sensory deficits as well. Results & Data ([facility]) Vital Signs (Past 12 Hours) Vital Signs Temp Pulse Pulse Resp BP Pulse Ox O2 Del Method 12/19/22 08:00 Room Air 12/19/22 07:32 37.1 C 78 16 145/85 H 95 Room Air 12/19/22 04:03 37.1 C 63 18 115/73 93 Room Air 12/19/22 00:21 37 C 66 18 134/81 95 Room Air
[2022-12-19] MEDS: ACETAMINOPHEN 500 MG TAB PO PRN ×2 (14:58→23:08)
[2022-12-19] MEDS: DOCUSATE SODIUM/SENNA 50/8.6MG TAB PO SCH (20:46)
[2022-12-20] MEDS: POLYETHYLENE (MIRALAX) 17 GM PACK PO SCH ×2 (05:39→09:23)
--- NOTE | 2022-12-20 08:16 | Discharge Summary ---
Date of Service December 20, 2022 Principal Diagnosis Lumbar disc herniation with neurologic deficits Discharge Data Allergies Allergy/AdvReac Type Severity Reaction Status Date / Time doxycycline Allergy Unknown RASH Verified 01/23/22 13:49 Consultations 12/16/22 11:51 Consult Orthopedic Surgery Stat 12/16/22 12:32 ED Decision to Admit Stat Procedures Performed Operation Date: 12/18/22 08:20 Actual Procedures p L4-L5 Decompression & Fusion, Spinal Cord Monitoring. (Not Applicable) - Ayad Bautista DO Ordered Studies 12/16/22 10:11 MR lumbar spine wo con Stat 12/18/22 11:00 FL lumbar spine 2-3V Routine Hospital Course (1) Lumbar disc herniation with radiculopathy: Patient was admitted with severe radiculopathy and progressive neuro deficit underwent emergent decompression and ultimately fusion of the L4-5 level. Postop day 1 she was up and ambulating pain markedly improved. Strength deficits noted but improving. She progressed to postop day #2. JENNY drain decreased appropriately. Strength improving. Subsequent discharge home. Discharge orders and instructions found in chart for further review. Total Time Total Time Spent Total Time Spent (In Minutes): 20 minutes Discharge Plan Discharge Items Patient Disposition: Home - Self-Care Reason For Visit: POTENTIAL HERNIATED DISC Discharge Diagnosis: Lumbar disc herniation with radiculopathy and neurologic deficit Activity: As commented below Non-emergency contact: Primary Care Provider Call non-emergency contact if: you have any medication questions Follow-up/Referrals: PCP,NO [Primary Care Provider] - Diet: Regular Addtl Attending Provider Instructions: ACTIVITY RECOMMENDATIONS: SELF CARE INSTRUCTIONS AFTER THORACIC/LUMBAR FUSIONS 1. You may walk to your tolerance. It is good exercise for your legs and back. Expect some back and intermittent leg aches and pains. 2. You may perform "counter-top" level activities (make a sandwich, darrick with a project, etc.). 3. No bending or lifting of more than 10 pounds or back twisting of any nature (roll like a log when turning in bed). 4. You may ride in a car for 20-30 minutes at a time. No driving until after your first visit with your doctor. 5. Frequent changes of position and restricting sitting to 30 minutes at a time will help limit the amount of back spasms and stiffness you may experience. 6. You may discontinue the use of ambulatory aids (cane, crutches, etc.) once your strength and confidence allow. 7. You may cannon pinion adjuster the shower and let water strike your incision when you arrive home at least once daily. Do not take a tub bath, sit in a hot tub or go into a swimming pool until after your first recheck in the office. SPECIAL CARE INSTRUCTIONS: VERY IMPORTANT TO READ AND REVIEW A. Your surgical incision has been closed with a cosmetic suture under the skin that will dissolve in about 6 weeks. In 14 days, you can use a pair of clean scissors and cut the suture that is left outside of the skin at the ends of your incision. 1. The small skin tapes can be removed 7 days after surgery if they have not fallen off by that point. 2. You may keep the wound open to air as much as possible to promote healing after post-op day number 5 unless told otherwise by your doctor. 3. If you think the wound looks like it is becoming infected (redness or worsening drainage) and/or you are experiencing fever, chill or worsening back pain and muscle spasms, contact the office so that we may evaluate you as soon as possible. B. Complications are uncommon, but please contact us if you have any signs or symptoms of: 1. wound infection (fever higher than 102.5 degrees F, redness, separation of wound, drainage, or increasing pain from the incision) 2. blood clots in legs (pain, swelling, redness and warmth in legs) 3. urinary tract infection (fever higher than 102.5 degrees F, burning upon urination or increased frequency of urination) 4. nerve problems (inability to walk on your toes or heels, numbness, loss of bowel or bladder control) 5. any other symptoms that concern you C. Please call the office at if you have any concerns or questions about your operation or recovery. D. No smoking! Smoking drastically decreases the chance of a solid fusion. E. Do not take any anti-inflammatory medications (Indocin, Advil, Motrin, Aspirin, Naprosyn, etc.) as these may inhibit the chance of a solid fusion. Tylenol is okay to take for pain. MANAGING PAIN AFTER SPINAL SURGERY 1. Narcotic medication is intended for short-term use and will be provided for surgical pain. Surgical pain usually lasts for a period of 4-6 weeks. Narcotic medication includes Percocet, Vicodin, Darvocet, Tylenol #3 or Lortab. 2. Longer-term pain is more appropriately treated with non-narcotic medication such as Tylenol ES. 3. Muscle spasm is not appropriately treated with narcotics. Muscle relaxers such as Soma, Flexeril or Skelaxin can be used along with Tylenol ES. 4. Remember that we all live with some "aches and pains". This is not unusual or uncommon after an injury or as we get older. a. Back pain is expected and may include muscle spasms for 4 to 6 weeks after surgery. The pain should gradually improve. If the pain worsens for no apparent reason, please contact the office. b. Intermittent leg pain may also be experienced and should not be concerned about unless it worsens for no apparent reason. If so, please contact the office. 5. We will provide appropriate medication within the normal guidelines of their prescribed use. We will also be very cautious and aware of potential abuse and extended duration of patients' medication needs. a. Pain medications are for your comfort and to assist with sleep and rest so that the tissue can heal. They are not provided in order to return to normal activity and should not be used through the day. To do so or worsening pain at night can result from ongoing tissue damage and development of tolerance to the prescribed medicine. 6. Please allow 2-3 days to process refills. Prescriptions will not be mailed but must be picked up at the office. FOLLOW UP VISIT: Keep your scheduled follow-up appointment. Any questions, please call the office at . Pending Studies at Discharge: No Stand-Alone Forms: [facility], Smoking Cessation Medications and DC Order Prescriptions: New oxycodone 5 mg tablet 5 mg PO Q6H PRN (Reason: pain, severe) Qty: 30 0RF tramadol 50 mg tablet 50 mg PO Q6H PRN (Reason: pain, moderate) Qty: 30 0RF enoxaparin [Lovenox] 40 mg/0.4 mL Syringe 40 mg subcut QAM Qty: 30 0RF Continued metoprolol succinate 25 mg tablet extended release 24 hr 25 mg PO DAILY norethindrone ac-eth estradiol [11/03 (21)] 1-20 mg-mcg tablet 1 tab PO DAILY Qty: 63 4RF Rx Instructions: take one tablet by mouth daily for 21 days, then 7 tablet free days. Repeat. Discharge Orders: Discharge Order (Routine); Ordered 12/20/22 Ordered By: Ayad Bautista Admission Data Admit Date/Time: 12/16/22 13:19 Attending Provider: Angeles Malik Admit Provider: Ayad Bautista Primary Care Provider: PCP,NO Other Providers: Betty Meadows ; Ayad Bautista ; Henok Dumont
[2022-12-20] MEDS ORDERED: ENOXAPARIN INJ 40 MG/0.4 ML SYR SQ SCH (09:00)
[2022-12-20] MEDS: METOPROLOL SUCC 25MG EXT REL TAB PO SCH (09:22)
[2022-12-20] MEDS: dexAMETHasone 6 MG in SYRINGE 0 ML IV SCH (09:22)
[2022-12-20] MEDS: ETHINYL ESTRADIOL PO SCH (10:37)
[2022-12-20] MEDS: NORETHINDRONE ACETATE PO SCH (10:37)
[2022-12-20] MEDS: CHECK SCOPOLAMINE PATCH PLACEMENT SCH (10:38)
--- NOTE | 2022-12-20 12:08 | Communication Note ---
Date of Service: December 20, 2022 Patient not seen by me prior to discharge today, cleared / discharged by ortho spine team. On review of chart, no overnight events, vitals normal overnight, no complaints raised by nursing staff. Lovenox daily recommended for DVT ppx, see hospitalist progress note from yesterday. Prescription sent in by ortho spine, patient/ to administer x10 days. Otherwise, post-operative care by Ortho spine.
== END 2022-12-20 11:40 | disposition home or self-care (01) | DRG 455 ==
LOC: ED 09:55 → SUATTDRO 13:19 → 3W 13:19